=== PATIENT | female | born 1990 | race Two or more races ===

== ENCOUNTER 2022-01-28 21:29 | Emergency (ER) | payer OTHER ==
[~2022-01-28] VITALS: Ht 162.6 cm; Wt 99.8 kg
[~2022-01-28 21:29] MED LIST: PREN1TAB49
[2022-01-28 21:37] VITALS: BP_SYST 153
--- NOTE | 2022-01-28 21:43 | NUR ---
PT HERE C/O OF FLU LIKE SYMPTOMS SINCE 0500 THIS MORNING. PT STATED SHE WOKE UP WITH HEADACHE, LIGHTHEADED AND DIZZINESS. PER PT SHE ALSO HAVE FEVER EARLIER AND TOOK A DOSE OF TYLENOL. PER PT REPORT SHE IS 7 WKS , G3,P2. DENIES ANY VAGINAL DISCHARGE AND ANY ISSUES. PMH:CHOLECYSTECTOMY PT AAOX4, NO SOB NOTED AND NAD. PT AFEBRILE AT THIS TIME. PENDING MD VAZQUEZ
--- NOTE | 2022-01-28 22:40 | NUR ---
Patient to ER bed 07 to gown for evaluation. Side rails up. Report given to IDALIA URENA
--- NOTE | 2022-01-29 01:25 | NUR ---
# 20 gauge angiocath placed to RAC. Use of asceptic technique. Opsite placed over site. Blood return noted. Flushed with 10 cc of normal saline. No evidence of infiltration noted. Patient tolerated well.
[2022-01-29] MEDS ORDERED: BENZTROPINE MESYLATE 2 MG/ 2 ML AMP IVP ONE (01:30)
[2022-01-29] MEDS ORDERED: PROCHLORPERAZINE EDISYLATE 10 MG/2 ML VIAL IVP ONE (01:30)
[2022-01-29] MEDS ORDERED: METOCLOPRAMIDE HCL 10 MG/2 ML VIAL IVP ONE (01:45)
[2022-01-29] MEDS ORDERED: NACL 0.9% 1,000 ML IV ONE ×2 (01:45→09:45)
[2022-01-29] MEDS ORDERED: ACETAMINOPHEN 500 MG TABLET PO ONE ×2 (01:45→09:45)
--- NOTE | 2022-01-29 02:10 | NUR ---
FLU AND COVID SAMPLE COLLECTED AND SENT TO LAB.
[2022-01-29 02:55] LABS: BASOPHILS % (AUTO) 0.5 % (0.0-2.0); EOSINOPHILS # (AUTO) 0.1 K/uL (0.0-0.4); EOSINOPHILS % (AUTO) 1.3 % (0.0-4.0); HEMATOCRIT 36.1 % (36-48); HEMOGLOBIN 11.9 g/dL (12.0-16.0); LYMPHOCYTES # (AUTO) 0.7 K/uL (1.0-5.5); LYMPHOCYTES % (AUTO) 10.4 % (20.5-51.5); MEAN CORPUSCULAR HEMOGLOBIN 28 pg (27-31); MEAN CORPUSCULAR HGB CONC 33 % (32-36); MEAN CORPUSCULAR VOLUME 84 fL (79.0-98.0); MONOCYTES # (AUTO) 0.5 K/uL (0.0-1.0); MONOCYTES % (AUTO) 7.9 % (1.7-9.3); NEUTROPHILS # (AUTO) 5.1 K/uL (1.8-7.7); NEUTROPHILS % (AUTO) 79.9 % (40.0-70.0); PLATELET COUNT (AUTO) 229 K/uL (130-430); RED BLOOD CELL COUNT(AUTO) 4.27 MIL/uL (4.2-6.2); RED CELL DISTRIBUTION WIDTH 14.5 % (9.0-15.0); WHITE BLOOD COUNT (AUTO) 6.4 K/uL (4.8-10.8)
--- NOTE | 2022-01-29 03:05 | NUR ---
MD MADE AWARE OF PT REPORTING FEELING NAUSEOUS.
[2022-01-29 03:16] LABS: CALCIUM 8.3 mg/dL (8.4-11.0); CREATININE 0.53 mg/dL (0.55-1.30)
[2022-01-29] MEDS ORDERED: ONDANSETRON HCL 4 MG/2 ML VIAL IVP ONE (03:30)
[2022-01-29] MEDS ORDERED: IPRATROPIUM/ALBUTEROL SULFATE 3 ML AMPUL.NEB (DUONEB) INH ONE (04:45)
[2022-01-29] MEDS ORDERED: NICOTINE 7 MG/24 HR PATCH.TD24 TD SCH (05:00)
[2022-01-29 06:42] LABS: BILIRUBIN,URINE NEGATIVE (NEGATIVE); BLOOD, URINE 1+ (NEGATIVE); CLARITY/URINE CLEAR (CLEAR); COLOR,URINE YELLOW (YELLOW); GLUCOSE,URINE NEGATIVE (NEGATIVE); KETONES,URINE NEGATIVE (NEGATIVE); LEUKOCYTE ESTERASE ,URINE 1+ (NEGATIVE); NITRITE, URINE NEGATIVE (NEGATIVE); PROTEIN URINE NEGATIVE (NEGATIVE); UROBILINOGEN,URINE 0.2 (0.2-1.0)
[2022-01-29 07:11] LABS: BACTERIA,URINE FEW /HPF (None Seen)
[2022-01-29 07:12] LABS: MUCUS,URINE None Seen /LPF (None Seen); YEAST,URINE Few /HPF (None Seen)
[2022-01-29 07:33] VITALS: BP_SYST 103
--- NOTE | 2022-01-29 07:33 | NUR ---
Patient given written and verbal discharge instructions and verbalizes understanding. ER Dr. Montano discussed with patient the results and treatment provided. Patient in stable condition. ID arm band removed. IV catheter removed intact and dressing applied, no active bleeding. Patient educated on pain management and to follow up with PMD. Pain Scale 0. Opportunity for questions provided and answered. Medication side effect fact sheet provided.
== END 2022-01-29 07:33 | disposition home or self-care (01) ==
LOC: SED 21:29
DX: O21.0 Mild hyperemesis gravidarum (principal); O29.41 Spinal and epidural anesthesia induced headache during pregnancy, first trimester; Z3A.01 Less than 8 weeks gestation of pregnancy; Z79.899 Other long term (current) drug therapy; Z20.822 Contact with and (suspected) exposure to COVID-19
CPT/HCPCS: 99285; 87426; 80048; 81000; 85025; 36415; 87804 ×2; 96374; 96361; 96375; J2765; J2405; J7030